=== PATIENT | female | born 1985 ===

== ENCOUNTER 2021-08-08 10:51 | Outpatient (CLI) | payer OTHER | END 2021-08-08 13:20 | disposition home or self-care (01) | LOC: PRENATAL 10:51 | PROVIDERS: ATTEND Obstetrics & Gynecology Maternal & Fetal Medicine | DX: O35.0XX0 Maternal care for (suspected) central nervous system malformation in fetus, not applicable or unspecified (principal); O35.3XX0 Maternal care for (suspected) damage to fetus from viral disease in mother, not applicable or unspecified ==

== ENCOUNTER 2021-08-30 16:31 | Outpatient (CLI) | payer OTHER | END 2021-08-31 13:54 | disposition home or self-care (01) | LOC: OBS/DEL 16:31 | PROVIDERS: ATTEND Obstetrics & Gynecology | DX: O23.42 Unspecified infection of urinary tract in pregnancy, second trimester (principal); N39.0 Urinary tract infection, site not specified; Z3A.23 23 weeks gestation of pregnancy ==

== ENCOUNTER 2021-10-24 10:10 | Outpatient (CLI) | payer OTHER | END 2021-10-24 11:25 | disposition home or self-care (01) | LOC: PRENATAL 10:10 | PROVIDERS: ATTEND Obstetrics & Gynecology Maternal & Fetal Medicine | DX: O09.529 Supervision of elderly multigravida, unspecified trimester (principal); O36.8199 Decreased fetal movements, unspecified trimester, other fetus; O26.849 Uterine size-date discrepancy, unspecified trimester; O99.210 Obesity complicating pregnancy, unspecified trimester; Z3A.31 31 weeks gestation of pregnancy ==

== ENCOUNTER 2021-11-22 15:33 | Outpatient (CLI) | payer OTHER | END 2021-11-22 16:42 | disposition home or self-care (01) | LOC: PRENATAL 15:33 | PROVIDERS: ATTEND Obstetrics & Gynecology Maternal & Fetal Medicine | DX: O26.849 Uterine size-date discrepancy, unspecified trimester (principal); O09.519 Supervision of elderly primigravida, unspecified trimester; O10.019 Pre-existing essential hypertension complicating pregnancy, unspecified trimester; O99.210 Obesity complicating pregnancy, unspecified trimester; Z3A.35 35 weeks gestation of pregnancy; E03.9 Hypothyroidism, unspecified ==

== ENCOUNTER 2021-12-12 08:04 | Inpatient (IN) | payer OTHER ==
[~2021-12-12] VITALS: Ht 170.2 cm; Wt 122.5 kg
[2021-12-12] MEDS ORDERED: SYNTHROID150 MCG PO (08:50)
[2021-12-12] MEDS ORDERED: PEPCID40 MG PO (08:51)
== END 2021-12-14 14:21 | disposition home or self-care (01) | DRG 806 ==
LOC: LDR 08:04 → OB/GYN 21:16
PROVIDERS: ADMIT Obstetrics & Gynecology; ATTEND Obstetrics & Gynecology
PROC: 10E0XZZ Delivery of Products of Conception, External Approach (ICD-10-PCS; principal; 2021-12-12)
PROC: 0KQM0ZZ Repair Perineum Muscle, Open Approach (ICD-10-PCS; 2021-12-12)
PROC: 3E0P7VZ Introduction of Hormone into Female Reproductive, Via Natural or Artificial Opening (ICD-10-PCS; 2021-12-12)
PROC: 4A1HXFZ Monitoring of Products of Conception, Cardiac Rhythm, External Approach (ICD-10-PCS; 2021-12-12)
DX: O70.1 Second degree perineal laceration during delivery (principal); O10.02 Pre-existing essential hypertension complicating childbirth; Z37.0 Single live birth; O99.824 Streptococcus B carrier state complicating childbirth; Z3A.38 38 weeks gestation of pregnancy